=== PATIENT | male | born 1990 | race Caucasian/White ===

== ENCOUNTER 2024-06-12 20:36 | Emergency (ER) | payer MEDICAID, SELFPAY ==
[2024-06-12 20:37] VITALS: BP 127/77; PULSE 76; TEMP 36.7; O2SAT 98; BMI 22.5
--- NOTE | 2024-06-12 20:45 | ED.GENADUL1 ---
HPI HPI - General Adult General Chief complaint: Recheck/Abnormal Lab/Rx Stated complaint: other Time Seen by Provider: 06/12/24 20:42 Source: patient Mode of arrival: walk-in History of Present Illness HPI narrative: Patient is a 34-year-old male presents to the ER from [facility]. Patient was new to the facility had only been there for 2 hours and reported that he had not use opiate medication in several days. The patient admits that he used opiates around 4 PM today in which she reports injecting fentanyl into his left antecubital area. Patient states after arriving there he felt exhausted and was getting ready to take a nap as he has been out for several days. Patient is admitting himself into the recovery center for treatment acknowledging that he has a drug and alcohol problem. Patient denies any chest pain or shortness of breath. When patient became sleepy and difficult to arouse he did receive Narcan at the facility. The patient states when he awoke he did not want to be transported as he knew what the problem was however per the protocol he was made to transport for evaluation. The patient denies any other drug use or activities in the interim. He has no complaints at this time. Related Data Allergies Allergy/AdvReac Type Severity Reaction Status Date / Time No Known Drug Allergies Allergy Verified 06/12/24 20:41 Opioid HPI Opioid Management Most Recent Opioid Data: No Data to Display Review of Systems ROS Constitutional Denies: fever or chills Eyes Denies: change in vision Ears, nose, mouth, and throat Denies: throat pain or neck pain Cardiovascular Denies: chest pain, palpitations, edema or swelling of feet/ankles Respiratory Denies: shortness of breath or cough Gastrointestinal Denies: abdominal pain, nausea or vomiting Genitourinary Denies: painful urination or urinary frequency Musculoskeletal Denies: back pain, neck pain or extremity pain Integumentary/Breast Denies: rash or itching Neurological Denies: headache or numbness in extremities (right hand chronic ulnar nerve) Psychiatric Denies: anxiety Endocrine Denies: excessive urination Hematologic/Lymphatic Denies: easy bruising Exam Narrative Exam Narrative: Nurses notes and vital signs reviewed and patient is not hypoxic. General: The patient appears well and in no apparent distress. Patient is resting comfortably on cart. Skin: Warm, dry, no pallor noted. Head: Normocephalic, atraumatic Neck: Supple, trachea mid-line, no tenderness, no lymphadenopathy Eye: Pupils are equal, round and reactive to light, EOMI Ears, Nose, Mouth, and Throat: TM are clear, normal light reflex, oral mucosa is moist, no posterior oropharynx erythema or hypertrophy, uvula is mid-line Cardiovascular: Regular Rate and Rhythm Respiratory: Patient is in no distress, no accessory muscle use, lungs are clear to auscultation, no wheezing, rales or rhonchi. Chest Wall: no tenderness Back: non-tender, no CVA tenderness Musculoskeletal: normal ROM, no tenderness, no swelling, deficits to the right hand noted consistent with history of ulnar nerve injury first dorsal webspace atrophy, track jose noted in the left AC with no signs of erythema or infection GI: Normal bowel sounds, no tenderness to palpation, no masses appreciated. No rebound, guarding, or rigidity noted. Neurological: A&O x4 Psychiatric: Cooperative Constitutional Vital Signs, click to edit/add: Last Vital Signs Temp 98.0 F 06/12/24 20:37 Pulse 76 06/12/24 20:37 Resp 16 06/12/24 20:37 BP 127/77 06/12/24 20:37 Pulse Ox 100 06/12/24 20:57 O2 Del Method Room Air 06/12/24 20:57 Course Vital Signs Vital signs: Vital Signs Temperature 98.0 F 06/12/24 20:37 Pulse Rate 76 06/12/24 20:37 Respiratory Rate 16 06/12/24 20:37 Blood Pressure 127/77 06/12/24 20:37 Pulse Oximetry 98 06/12/24 20:37 Oxygen Delivery Method Room Air 06/12/24 20:37 Temperature 98.0 F 06/12/24 20:37 Pulse Rate 76 06/12/24 20:37 Respiratory Rate 16 06/12/24 20:37 Blood Pressure 127/77 06/12/24 20:37 Pulse Oximetry 100 06/12/24 20:57 Oxygen Delivery Method Room Air 06/12/24 20:57 Medical Decision Making MDM Narrative Medical decision making narrative: Patient reports I am getting serious about needing help and that is why I went to the recovery center. Patient reports injecting fentanyl in his left AC earlier today around 4 PM. Patient felt he was very fatigued from not sleeping for several nights, and was simply going to sleep. Patient readily admits that he has a drug and alcohol problem. He would like to check back into the recovery center to start detox and treatment. He has been feeling well since he received Narcan and was observed here in the ER for over an hour with no increase sedation and fingerstick blood sugar check. Patient will be discharged back to the facility for further management. He does not require any additional laboratory studies as he has no other symptoms and admits that he does not want to be here to begin with, but is following protocol from the facility as he needs their treatment. The patient is to followup with primary care physician in next 2-3 days or to return to the emergency department should any of the signs or symptoms worsen or new symptoms develop. Patient had questions answered. The patient agrees with the following Diagnosis and Treatment plan and the patient will be discharged home ( back to [facility]) . Lab Data Lab results reviewed: Yes I reviewed the patient's lab results Lab results narrative: FSBS 110mg/dl Labs: Lab Results 06/12/24 Range/Units 20:54 POC Glucose 110 H (74-106) mg/dL Discharge Plan Discharge Chief Complaint: Recheck/Abnormal Lab/Rx Clinical Impression: Opiate abuse, episodic, Opiate overdose Patient Disposition: Home, Self-Care Time of Disposition Decision: 20:53 Condition: Good Print Language: Hebrew Instructions: Opioid Use Disorder (ED) Referrals: [facility] [Outside] - As soon as possible Jennifer Bailon NP [Physician] - As needed Discharge Date/Time: 06/12/24 22:10
[2024-06-12 20:56] LABS: Glucometer 110 mg/dL (74-106)
[2024-06-12 20:57] VITALS: O2SAT 100
--- NOTE | 2024-06-12 20:59 | PC.NURSE ---
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
== END 2024-06-12 22:10 | disposition home or self-care (01) ==
PROVIDERS: Emergency Provider Internal Medicine
DX: T40.601A Poisoning by unspecified narcotics, accidental (unintentional), initial encounter (principal); F11.10 Opioid abuse, uncomplicated
CPT/HCPCS: 36415; 82948; 99283